=== PATIENT | male | born 1940 | race Caucasian/White ===

== ENCOUNTER 2018-08-08 19:28 | Emergency (ER) | payer MEDICARE, OTHER ==
[~2018-08-08] VITALS: Ht 162.6 cm; Wt 53.7 kg
[2018-08-08 19:37] VITALS: Ht 162.6 cm; Wt 53.7 kg
--- NOTE | 2018-08-08 20:23 | ERD ---
ER Documentation Chief Complaint Chief Complaint Pt reports FB in R eye this afternoon HPI This is a 77-year-old male who was accompanied by a family member here to emerge department with complaints of right eye pain that started at 12 noon. Patient stated that he was walking the street, when he felt like something got into his right eye. He denies use of glasses/contact lenses. Patient reports foreign body sensation to right eye. Denies headache, head injury, loss of consciousness, dizziness, neck pain, neck stiffness, throat pain, difficulty swallowing, difficulty breathing lying flat, shoulder pain, chest pain, back pain, abdominal pain, nausea, vomiting, constipation, diarrhea, urinary symptoms, loss of bowel and bladder control, trauma, injury, falls, difficulty walking due to pain, numbness or tingling sensation, calf pain, recent travel, recent major surgery in the last 3 weeks, calf pain, recent long travel, recent exposure to any illness, recent antibiotic use in the last 3 months, fever, chills, seizures. Past medical history: Denies. Surgical history: Social: Denies smoking, use of alcoholic beverages, use of illegal drugs. ROS All systems reviewed and are negative except as per history of present illness. Medications Home Meds Active Scripts Ofloxacin* (Ocuflox*) 0.3%-5 Ml Ophth Drops, 1 DROP BOTH EYES QID for 5 Days, BOTTLE Prov:SABINO JOHNSON 08/08/18 Allergies Allergies: Coded Allergies: No Known Allergy (Unverified , 05/08/13) PMhx/Soc Hx Alcohol Use: No Hx Substance Use: No Hx Tobacco Use: No Physical Exam Vitals Vital Signs Date Temp Pulse Resp B/P (MAP) Pulse Ox O2 O2 Flow FiO2 Time Delivery Rate 08/08/18 97.6 61 20 170/86 100 Room Air 21:20 (114) 08/08/18 98.4 55 16 168/80 98 19:37 (109) Physical Exam Const: No acute distress Head: Atraumatic. No vesicular lesions. Eyes: There is no total vision loss bilaterally. Right eye: Conjunctival injection. No bleeding. No discharge. There is no pain in eye movement. Extraocular movement of his eyes within normal limits. Left eye: No conjunctival injection. No bleeding. No discharge. There is no pain in eye movement. Extraocular movement of his eyes within normal limits. No vesicular lesions around the external eye. ENT: Normal External Ears, Nose and Mouth. Bilateral ears: TMs are not erythematous. No bleeding. No discharge with no hearing loss. No mastoid tenderness. Nose: Midline without deviation. No septal hematoma. Throat/lips: No lip swelling. No facial swelling. No signs of tooth avulsions. Uvula is in midline and nondisplaced. Tonsils are +1 bilaterally without redness without exudates. Tolerating secretions. Patent airway. Speaks full and clear sentences. Neck: Full range of motion. No meningismus. No nuchal rigidity. No signs of meningeal irritation. Resp: Clear to auscultation bilaterally Cardio: Regular rate and rhythm, no murmurs Abd: Soft, non tender, non distended. Normal bowel sounds Skin: No petechiae or rashes Back: No midline or flank tenderness Ext: No cyanosis, or edema Neur: Awake and alert. Romberg test negative. No neurological deficits. Psych: Normal Mood and Affect Results 24 hrs Current Medications Medications Dose Sig/Vanessa Start Time Status Last (Trade) Ordered Route PRN Stop Time Admin Dose Reason Admin Tetracaine 1 drop ONCE ONCE 08/08/18 DC HCl BOTH EYES 20:30 (Tetracaine 08/08/18 20:31 0.5% Steri-Unit Shantell) Fluorescein 1 strip ONCE ONCE 08/08/18 DC Sodium BOTH EYES 20:30 ([id number] 08/08/18 20:31 p) 1 tab ONCE ONCE 08/08/18 DC 08/08/18 Acetaminophen PO 20:30 20:33 / 08/08/18 20:31 Hydrocodone Bitart ([place]ell (5/325)) Diphtheria/ 0.5 ml ONCE ONCE 08/08/18 DC 08/08/18 Tetanus/Acell IM* 21:00 20:57 Pertussis 08/08/18 21:01 (Adacel) Procedures/MDM Diagnostic tests: ED visual acuity: Left eye: 20/70 Right eye: 20/40 Bilateral eyes: 20/40 Treatment: Adacel IM. Maskell. Tetracaine ophthalmic drops. Lilly lamp: Fluorescent staining. Noted foreign body to 3:00 and 4:00. No obvious uptake. No signs of punctured globe. No signs of globe rupture. No dendritic lesions. Foreign body removal under Lilly lamp/light. Removed total of 3 foreign body. Re-evaluation: No visual field loss. There is no pain in eye movement. Extraocular movement of his eyes are within normal limits. Romberg test negative. No neurological deficits. Stated that he feels much better at this time and that he is ready to go home. Differential diagnosis I have low suspicion for acute closure angle glaucoma, globe rupture, orbital cellulitis, periorbital cellulitis, punctured globe, blindness, herpes zoster ophthalmicus. Final diagnosis: Corneal abrasion. Removal of foreign body to eye. Prescription: Ocuflox. Follow-up with PCP in the next 24-48 hours. Follow-up with maintenance tech in the next 24 to 48 hours. Come back here in the emergency department for any new symptoms or any worsening symptoms. All questions and concerns were answered. Patient and family members verbalized understanding and agreed with plan of care. Hemodynamically stable on discharge. Departure Diagnosis: Primary Impression: Corneal abrasion Additional Impression: Eye injury Condition: Stable Additional Instructions: Follow-up with PCP in the next 24-48 hours. Follow-up with maintenance tech in the next 24 to 48 hours. Come back here in the emergency department for any new symptoms or any worsening symptoms. Comments Patient evaluated with [facility], agreed with assessment and plan. SABINO Vitale Aug 08, 2018 20:23 LEONELA KENDALL DO Aug 10, 2018 12:47
[2018-08-08] MEDS ORDERED: HYDROCODONE/APAP (5/325) TAB PO ONE (20:30)
[2018-08-08] MEDS ORDERED: TETRACAINE 0.5% 4 ML OPH BOTH EYES ONE (20:30)
[2018-08-08] MEDS ORDERED: FLUORESCEIN STRIP BOTH EYES ONE (20:30)
[2018-08-08] MEDS ORDERED: DIPHTH/TET/ACEL PERTUSS (ADULT) 0.5 ML VIAL IM* ONE (21:00)
[2018-08-08] MEDS ORDERED: OFLO5DRO46 BOTH EYES (21:08)
[2018-08-08 21:20] VITALS: BP 170/86; PULSE 61; RESP 20
== END 2018-08-08 21:29 | disposition home or self-care (01) ==
LOC: FTE 19:28
DX: T15.91XA Foreign body on external eye, part unspecified, right eye, initial encounter (principal); X58.XXXA Exposure to other specified factors, initial encounter; Y92.410 Unspecified street and highway as the place of occurrence of the external cause; Z23 Encounter for immunization
CPT/HCPCS: 90471; 90715